=== PATIENT | female | born 1955 | race Caucasian/White ===

== ENCOUNTER → 2016-12-23 | Outpatient (CLI) | payer BC | END | disposition home or self-care (01) | LOC: LABWHC1 12:36 | PROVIDERS: ATTEND Internal Medicine Endocrinology, Diabetes & Metabolism | DX: E03.8 Other specified hypothyroidism (principal) | CPT/HCPCS: 36415; 84443 ==

== ENCOUNTER 2017-06-10 16:04 | Emergency (ER) | payer BC ==
[2017-06-10] MEDS ORDERED: SODIUM CHLORIDE 0.9% 1,000 ML IV STA (16:47)
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
[2017-06-10 17:22] LABS: Basophils # (A) 0.1 k/uL (0-0.2); Basophils % (A) 1 %; CH 32.1; CHCM 35.1; Eosinophils # (A) 0.1 k/uL (0-0.7); Eosinophils % (A) 1 %; HCT 49.7 % (34.0-46.0); HDW 2.44; HGB 17.4 gm/dL (11.4-16.0); Luc # (Auto) 0.13; Luc % (Auto) 1; Lymphocytes # (A) 1.2 k/uL (1.0-4.8); Lymphocytes % (A) 9 %; MCH 32.1 pg (25.0-35.0); MCHC 34.9 g/dL (31.0-37.0); Mean Platelet Volume 7.5; Monocytes # (A) 0.5 k/uL (0-1.0); Monocytes % (A) 4 %; Neutrophils # (A) 11.4 k/uL (1.3-7.7); Neutrophils % (A) 85 %; RDW 13.4 % (11.5-15.5); WBC 13.4 k/uL (3.8-10.6); WBC (Perox) 12.62
[2017-06-10 17:35] LABS: Partial Thromboplastin Time 25.9 sec (22.0-30.0); Prothrombin Time 10.6 sec (9.0-12.0)
[2017-06-10] MEDS ORDERED: LORazepam 2 MG/ML SYRINGE IV STA (17:35)
[2017-06-10 17:41] LABS: ALT 27 U/L (9-52); AST 34 U/L (14-36); Alkaline Phosphatase 65 U/L (38-126); Anion Gap 13 mmol/L; Blood Urea Nitrogen 16 mg/dL (7-17); Calcium 9.6 mg/dL (8.4-10.2); Carbon Dioxide 19 mmol/L (22-30); Chloride 107 mmol/L (98-107); Glucose 78 mg/dL (74-99); Non-African American GFR(MDRD) >60 (>60 ml/min/1.73 sqM); Potassium 4.5 mmol/L (3.5-5.1); Sodium 139 mmol/L (137-145); Total Bilirubin 0.9 mg/dL (0.2-1.3); Total Protein 7.7 g/dL (6.3-8.2)
[2017-06-10 17:48] LABS: Creatine Kinase 570 U/L (30-135)
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
[2017-06-10 18:01] LABS: Troponin I <0.012 ng/mL (0.000-0.034)
[2017-06-10 18:07] LABS: Creatine Kinase MB 6.5 ng/mL (0.0-2.4)
--- NOTE | 2017-06-10 18:15 | XR ---
EXAMINATION TYPE: XR thoracic spine complete DATE OF EXAM: 06/10/2017 CLINICAL HISTORY: pain TECHNIQUE: Frontal, lateral, and swimmer's view of thoracic spine are obtained. COMPARISON: None. FINDINGS: Thoracic spine show satisfactory alignment without evidence of acute fracture or dislocatio n. Vertebral body heights are preserved. Scattered degenerative disc is narrowing and spondylosis. Visualized ribs are unremarkable. IMPRESSION: No acute fracture or dislocation is seen in the thoracic spine. ICD 10 NO FRACTURE, INIT IAL EVALUATION
--- NOTE | 2017-06-10 18:15 | XR ---
EXAMINATION TYPE: XR lumbar spine 2 or 3V DATE OF EXAM: 06/10/2017 CLINICAL HISTORY: pain TECHNIQUE: Three views of the lumbar spine are submitted. COMPARISON: None. FINDINGS: There are 5 lumbar type vertebral bodies identified. The lumbar spine shows satisfactory alignment w ithout evidence of acute fracture or dislocation. Vertebral body heights are within normal limits. Mild degenerative disc space narrowing. Mild to moderate spondylosis and facet joint arthropathy. Th e overlying soft tissue appears unremarkable. IMPRESSION: No acute fracture or dislocation is seen in the lumbar spine. ICD 10 NO FRACTURE, INITIAL EVALUATION
--- NOTE | 2017-06-10 18:16 | XR ---
EXAMINATION TYPE: XR pelvis AP view DATE OF EXAM: 06/10/2017 CLINICAL HISTORY: pain TECHNIQUE: Single view the pelvis is submitted. FINDINGS: No evidence for fracture, dislocation or bony lesion. Joint spaces are well-preserved. S I joints appear symmetric. IMPRESSION: 1. No acute fracture or dislocation seen. ICD 10 NO FRACTURE, INITIAL EVALUATION
--- NOTE | 2017-06-10 18:17 | XR ---
EXAMINATION TYPE: XR chest 2V DATE OF EXAM: 06/10/2017 COMPARISON: NONE HISTORY: Shortness of breath TECHNIQUE: Frontal and lateral views of the chest are obtained. FINDINGS: Scattered senescent parenchymal changes noted. Hyperinflation compatible with COPD. No evidence for infiltrate. No evidence for atelectasis. Heart size is stable. Mediastinal structures are stable and grossly unremarkable. No evidence for hilar prominence. Degenerative changes dorsal spine. IMPRESSION: 1. No evidence for acute pulmonary disease.
[2017-06-10] MEDS ORDERED: KETOROLAC 30 MG/ML 1 ML VIAL IVP STA (19:10)
[2017-06-10 19:21] VITALS: BP 187/95; PULSE 79; RESP 21; TEMP 97.9
== END 2017-06-10 19:33 | disposition home or self-care (01) ==
LOC: EC 16:04
DX: M62.830 Muscle spasm of back (principal); M25.511 Pain in right shoulder; H57.11 Ocular pain, right eye; E07.9 Disorder of thyroid, unspecified; Z79.899 Other long term (current) drug therapy; V43.52XA Car driver injured in collision with other type car in traffic accident, initial encounter; Y92.410 Unspecified street and highway as the place of occurrence of the external cause
CPT/HCPCS: 99285; 96374; 96361 ×2; 36415; 93005; 80053; 82550; 82553; 84484; 85025; 85610; 85730; 71020; 72072; 72100; 72170; 72125; 70486; 70450; J1885

== ENCOUNTER → 2017-07-06 | Outpatient (CLI) | payer BC | END | disposition home or self-care (01) | LOC: LABWHC1 08:34 | PROVIDERS: ATTEND Internal Medicine Endocrinology, Diabetes & Metabolism | DX: E03.8 Other specified hypothyroidism (principal) | CPT/HCPCS: 36415; 84443 ==

== ENCOUNTER → 2018-01-12 | Outpatient (CLI) | payer BC | END | disposition home or self-care (01) | LOC: LABWHC1 08:58 | PROVIDERS: ATTEND Internal Medicine Endocrinology, Diabetes & Metabolism | DX: E03.8 Other specified hypothyroidism (principal) | CPT/HCPCS: 36415; 84443 ==

== ENCOUNTER → 2018-07-12 | Outpatient (CLI) | payer BC | END | disposition home or self-care (01) | LOC: LABWHC1 11:31 | PROVIDERS: ATTEND Internal Medicine Endocrinology, Diabetes & Metabolism | DX: Z01.812 Encounter for preprocedural laboratory examination (principal) | CPT/HCPCS: 36415; 84443 ==

== ENCOUNTER → 2019-01-04 | Outpatient (CLI) | payer BC | LOC: LABWHC1 10:33 | PROVIDERS: ATTEND Internal Medicine Endocrinology, Diabetes & Metabolism | DX: E03.8 Other specified hypothyroidism (principal) | CPT/HCPCS: 36415; 84443 ==

== ENCOUNTER → 2019-08-29 | Outpatient (CLI) | payer BC | END | disposition home or self-care (01) | LOC: LABWHC1 08:33 | PROVIDERS: ATTEND Internal Medicine Endocrinology, Diabetes & Metabolism | DX: E03.8 Other specified hypothyroidism (principal) | CPT/HCPCS: 36415; 84443 ==

== ENCOUNTER → 2019-09-30 | Outpatient (CLI) | payer BC ==
--- NOTE | 2019-10-07 12:21 | HM ---
HOLTER MONITOR REPORT 48 HOUR HOLTER REPORT: No diary was provided. Predominant rhythm appears to be sinus with a heart rate ranging from 51 to 113 beats per minute with average heart rate of about 70 beats or so. Rare isolated PACs and PVCs were noted without any significant runs of SVT, VT, or bradyarrhythmia. FINAL IMPRESSION: This is unremarkable 48 hour Holter with predominant sinus rhythm, average heart rate of about 70 beats per minute. There was evidence of some isolated PACs and PVCs without any significant runs of SVT, VT, or bradyarrhythmia. No diary was provided with these recordings. MMODL / IJN: [id number] /
== END | disposition home or self-care (01) ==
LOC: RADECHMAIN 11:28
PROVIDERS: ATTEND Family Medicine
DX: I49.1 Atrial premature depolarization (principal); I49.3 Ventricular premature depolarization
CPT/HCPCS: 93225; 93226

== ENCOUNTER → 2020-05-03 | Outpatient (CLI) | payer BC | END | disposition home or self-care (01) | LOC: LABWHC1 12:08 | PROVIDERS: ATTEND Internal Medicine Endocrinology, Diabetes & Metabolism | DX: E03.8 Other specified hypothyroidism (principal) | CPT/HCPCS: 36415; 84443 ==

== ENCOUNTER → 2020-12-10 | Outpatient (CLI) | payer BC | END | disposition home or self-care (01) | LOC: LABWHC1 09:18 | PROVIDERS: ATTEND Internal Medicine Endocrinology, Diabetes & Metabolism | DX: E03.8 Other specified hypothyroidism (principal) | CPT/HCPCS: 36415; 84443 ==

== ENCOUNTER 2021-01-11 07:14 | Day surgery (SDC) | payer BC ==
[2021-01-10 09:04] VITALS: BMI 29.8
[~2021-01-11 07:14] MED LIST: LACTATED RINGERS 1,000 ML IV SCH; LIDOCAINE 1% (10MG/ML) FOR IV START INTRADERMA PRN
[2021-01-11 08:00] VITALS: RESP 16; TEMP 98.2
[2021-01-11] MEDS ORDERED: PROPOFOL 10 MG/ML 20 ML VIAL IV ONE (08:07)
[2021-01-11] MEDS ORDERED: LIDOCAINE 1% INJ 10MG/ML (20 ML MDV) ONE (08:07)
--- NOTE | 2021-01-11 08:27 | P.PCN ---
Date of Procedure: 01/11/21 Procedure(s) Performed: BRIEF HISTORY: Patient is a 65-year-old pleasant white female scheduled for an elective colonoscopy as a part of screening for colorectal neoplasia. PROCEDURE PERFORMED: Colonoscopy. PREOPERATIVE DIAGNOSIS: Screening for colon cancer. IV sedation per Anesthesia. PROCEDURE: After informed consent was obtained, the patient, was brought into the endoscopy unit. IV sedation was administered by Anesthesia under continuous monitoring. Digital rectal examination was normal. Initially the Olympus CF-160 flexible video colonoscope was then inserted in the rectum, gradually advanced into the cecum without any difficulty. Careful examination was performed as the scope was gradually being withdrawn. Ileocecal valve and the appendiceal orifice were visualized and appeared normal. Prep was excellent. Mucosa of the cecum, ascending colon, transverse colon, descending colon, sigmoid colon, and rectum appeared normal. Scattered sigmoid diverticulosis. Retroflexion was performed in the rectum and no lesions were seen. The patient tolerated the procedure well. IMPRESSION: Normal-appearing colon from rectum to cecum with no evidence of colorectal neoplasia. Scattered sigmoid diverticulosis. RECOMMENDATIONS: Findings of this examination were discussed with the patient a s well as her family. She was advised to have a repeat screening colonoscopy in 10 years..
[2021-01-11 09:01] VITALS: BP 144/71; PULSE 63
== END 2021-01-11 09:09 | disposition home or self-care (01) ==
LOC: ORWHC2ENDO 07:14
PROVIDERS: ATTEND Internal Medicine Gastroenterology
DX: Z12.11 Encounter for screening for malignant neoplasm of colon (principal); K57.30 Diverticulosis of large intestine without perforation or abscess without bleeding; I10 Essential (primary) hypertension; E78.5 Hyperlipidemia, unspecified; Z79.899 Other long term (current) drug therapy
CPT/HCPCS: J2001; J2704; G0121

== ENCOUNTER → 2021-04-08 | Outpatient (CLI) | payer MEDICARE | END | disposition home or self-care (01) | LOC: LABWHC1 08:37 | PROVIDERS: ATTEND Family Medicine | DX: U07.1 COVID-19 (principal) | CPT/HCPCS: 36415; 86769 ==

== ENCOUNTER → 2021-04-09 | Outpatient (CLI) | payer BC ==
--- NOTE | 2021-04-09 18:43 | CONS ---
CONSULTATION REASON FOR CONSULTATION: Sleep apnea. This 66-year-old female patient was referred to me for sleep apnea evaluation. The patient has been having occasional palpitations. She has undergone a full cardiac evaluation by Dr. Huang. The workup has been negative. She was referred to me accordingly. The patient had a recent COVID-19 infection, from which she has recovered without any major difficulties. She has hypertension and hypothyroidism as comorbid conditions and she has undergone a previous partial nephrectomy for a benign kidney disease. In terms of sleep apnea, she has been noted to snore and occasionally stop breathing. In general, she has suffered from insomnia for many years and she is averaging only 5 hours of sleep. Nevertheless, the sleep quality, according to her, does not seem to be appropriate and she may have an underlying obstructive sleep apnea, as the patient is having snoring and occasional apneas. As such, she wants to be further investigated. She has difficulties sleeping outside her bedroom environment. As such, polysomnography in the sleep center may not be possible. No recent weight gain. She wakes up frequently in the middle of the night. She is able to generate and go back to sleep. No sleep paralysis. No hallucinations. No cataplexy. She prefers to sleep on her side. No naps during the day. Lena score is 2. PAST MEDICAL HISTORY: 1. COVID-19 infection, recovered. 2. Hypertension. 3. Chronic insomnia. 4. Hypothyroidism. PAST SURGICAL HISTORY: Past surgical history includes partial nephrectomy on the left. DRUG ALLERGIES: NOT KNOWN. OUTPATIENT MEDICATIONS: The patient is on hormone replacement therapy, including progesterone 100 mg p.o. daily, a hormonal patch and . She is also on Tirosint 112 mcg p.o. daily, amlodipine 5 mg p.o. daily, calcium tablets, vitamin B12, folic acid and vitamin D3. SOCIAL HISTORY: The patient is a nonsmoker. No history of alcoholism. No history of IV drugs. No history of substance abuse. She is . She is living with her . FAMILY HISTORY: Noncontributory. Negative for sleep apnea. Mother had pancreas cancer, . Father had stroke, . REVIEW OF SYSTEMS: Fourteen-point review of systems was done. Negative other than things mentioned above in history of present illness. PHYSICAL EXAMINATION: VITAL SIGNS: BP is 137/83, pulse 67, respirations 12, temperature 98.4, saturation 97% on room air. Height is 5 feet 2 inches, weight is 167. Lena score is 2. BMI 30.5. Neck size 14 inches. GENERAL APPEARANCE: Calm, comfortable. HEAD: Atraumatic, normocephalic. NECK: Supple. No JVD. No goiter or neck masses. Mallampati class IV. LUNGS: Clear to auscultation. HEART: Heart sounds are regular rate and rhythm. Normal S1, S2. No S3, S4. No murmurs. ABDOMEN: Soft, nontender. No organomegaly. EXTREMITIES: No edema. No cyanosis or clubbing. IMPRESSION: 1. Obstructive sleep apnea clinically suspected, currently under investigation. The patient has a Mallampati class IV along with an overbite and some slight grinding of the teeth. No recent weight gain. She has snoring and occasional apneas. 2. Chronic insomnia. Able to generate around 4 to 5 hours of sleep. 3. COVID-19 infection, recovered. 4. Hypertension. 5. Hypothyroidism. 6. Partial nephrectomy for a benign kidney lesion. PLAN: 1. Proceed with a home sleep study. 2. Results will be reviewed and the patient will be instructed accordingly on treatment plan. MMODL / IJN: [id number] /
== END ==
LOC: SLEEP 13:07
PROVIDERS: ATTEND Internal Medicine Critical Care Medicine
DX: G47.00 Insomnia, unspecified (principal); R06.83 Snoring; G47.63 Sleep related bruxism; I10 Essential (primary) hypertension; E03.9 Hypothyroidism, unspecified; Z90.5 Acquired absence of kidney; Z86.16 Personal history of COVID-19
CPT/HCPCS: 99211

== ENCOUNTER → 2021-04-15 | Outpatient (CLI) | payer MEDICARE ==
--- NOTE | 2021-04-17 06:38 | BD ---
EXAMINATION TYPE: Axial Bone Density DATE OF EXAM: 04/15/2021 COMPARISON: NONE CLINICAL HISTORY: Postmenopausal female Height: 61.5 IN Weight: 165 LBS RISK FACTORS HISTORY OF: History of Wrist Fracture: RT WRIST AGE 10 Active: YES Diet low in dairy products/other sources of calcium: YES Postmenopausal woman: AGE 51 Take estrogen and/or progesterone medications: PROGESTERONE AND VAGIFEM How lon YEARS MEDICATIONS: Thyroid Medications: YES Which medication: TIROSINT How Lon+ YEARS Additional Medications: CALCIUM, VIT D, TIROSINT, VAGIFEM, PROGESTERONE, BLOOD PRESSURE MED, EXAM MEASUREMENTS: Bone mineral densitometry was performed using the [employer] System. Bone mineral density as measured about the Lumbar spine is: ----- L1-L4(G/cm2): 11.435 T Score Values are as follows: ----- L2: 1.6 ----- L3: 2.3 ----- L4: 2.7 ----- L1-L4: 2.1 Bone mineral density BASELINE Bone mineral density about the R hip (g/cm2): 0.971 Bone mineral density about the L hip (g/cm2): 0.988 T Score values are as follows: -----R Neck: -0.5 -----L Neck: -0.4 -----R Total: -0.2 -----L Total: -0.2 Bone mineral density BASELINE IMPRESSION: Normal (Values between +1 and -1 indicate normal bone mass). Consider repeating this study in 5 year s or sooner if there is some new clinical indication. NOTE: T-SCORE=SD OF THE YOUNG ADULT MEAN.
== END | disposition home or self-care (01) ==
LOC: RADBDWWP 11:10
PROVIDERS: ATTEND Family Medicine
DX: Z78.0 Asymptomatic menopausal state (principal)
CPT/HCPCS: 77080

== ENCOUNTER → 2021-10-15 | Outpatient (CLI) | payer MEDICARE ==
--- NOTE | 2021-10-15 17:45 | PN ---
PROGRESS NOTE Maru is coming in for a compliance check regarding obstructive sleep apnea. The patient was diagnosed having SHAINA moderate severe with an AHI of 21, and this is based on a home sleep study. For now, the patient is using a Simplus full-face mask, small size. She is not very much comfortable with a full-face mask. She is reporting improvement in her sleep quality in general while on CPAP therapy and she seems to be committed for long-term use. I checked the compliance data and based on a 30-day compliance data that was collected between 07/11/2021 and 08/09/2021, the patient has been averaging around 6 hours and 28 minutes of CPAP use per night and she has used the machine more than 4 hours, 87% of the time. Her AHI is down to 3.8 and her leak is minimal at this point in time. Her current leak is in the order of 8 L/minute. Her [place] score is down to 1. On today's evaluation, we discussed other options and possibilities in terms of her mask interface. After a lengthy discussion, I opted to give her a DreamWear under the nose small size mask to try. Another thing was to switch her to an APAP mode for her at an EPR of 3 and drop the temperature of the tubing down to 76 degrees Fahrenheit, knowing that her current temperature is 82. REVIEW OF SYSTEMS: Fourteen-point review of system was done positive findings are mentioned in history of present illness. She is currently stable. PHYSICAL EXAMINATION: VITAL SIGNS: BP is 126/77, pulse 73, respirations 18, temperature 97.8, weight is 169, which is stable. [place] score is 1. Saturation 97% on room air. General appearance: Calm, comfortable. Head is atraumatic, normocephalic. Neck: Supple. There is no JVD. No goiter or neck mass. Lungs: Clear to auscultation. Heart: Heart sounds are regular rate and rhythm. Normal S1, S2. No murmurs. Abdomen: Soft, nontender. No organomegaly. Extremities: No edema, no cyanosis or clubbing. IMPRESSION: 1. Symptomatic SHAINA with an AHI of 21, moderately severe based on home sleep study. Currently on a CPAP at a pressure of 7. 2. Hypersomnia, improved. 3. Snoring improved. PLAN: 1. Offer the patient a DreamWear under the nose small size nasal mask. 2. Switch this patient to an APAP mode, pressure minimum of 4, maximum of 7 with a ramp time. 3. Add EPR of 3. 4. Drop the temperature of the tubing down to 76 degrees Fahrenheit. 5. Encourage weight loss. 6. See me back in a year's time in followup. MMODRimma / IJN: [id number] /
== END ==
LOC: SLEEP 13:28
PROVIDERS: ATTEND Internal Medicine Critical Care Medicine
DX: G47.33 Obstructive sleep apnea (adult) (pediatric) (principal)

== ENCOUNTER → 2021-12-10 | Outpatient (CLI) | payer MEDICARE ==
[2021-12-10 14:36] LABS: T4, Free (Free Thyroxine) 1.56 ng/dL (0.800-1.800)
== END | disposition home or self-care (01) ==
LOC: LABWHC1 10:46
PROVIDERS: ATTEND Internal Medicine Endocrinology, Diabetes & Metabolism
DX: E03.8 Other specified hypothyroidism (principal)
CPT/HCPCS: 36415; 84439; 84443

== ENCOUNTER → 2022-06-16 | Outpatient (CLI) | payer MEDICARE | END | disposition home or self-care (01) | LOC: LABWHC1 08:54 | PROVIDERS: ATTEND Internal Medicine Endocrinology, Diabetes & Metabolism | DX: E03.8 Other specified hypothyroidism (principal) | CPT/HCPCS: 36415; 84443 ==

== ENCOUNTER → 2023-03-23 | Outpatient (CLI) | payer MEDICARE ==
[2023-03-23 15:28] LABS: AST 22 U/L (13-35)
[2023-03-23 15:29] LABS: ALT 20 U/L (8-44); Chol/HDL Ratio 4.91 Ratio
== END | disposition home or self-care (01) ==
LOC: LABWHC1 08:45
PROVIDERS: ATTEND Internal Medicine Interventional Cardiology
DX: E78.2 Mixed hyperlipidemia (principal)
CPT/HCPCS: 36415; 80061; 84450; 84460

== ENCOUNTER → 2023-07-13 | Outpatient (CLI) | payer MEDICARE | END | disposition home or self-care (01) | LOC: LABWHC1 11:08 | PROVIDERS: ATTEND Internal Medicine Endocrinology, Diabetes & Metabolism | DX: E03.8 Other specified hypothyroidism (principal) | CPT/HCPCS: 36415; 84443 ==

== ENCOUNTER → 2023-10-05 | Outpatient (CLI) | payer MEDICARE ==
[2023-10-05 22:19] LABS: ALT 20 U/L (8-44); AST 20 U/L (13-35); Albumin 4.4 d/dL (3.8-4.9); Alkaline Phosphatase 65 U/L (41-126); BUN/Creat Ratio 18.89 Ratio (12.00-20.00); Calcium 9.5 mg/dL (8.7-10.3); Carbon Dioxide 27.5 mmol/L (21.6-31.8); Chloride 106 mmol/L (96-109); Chol/HDL Ratio 2.72 Ratio; Glucose 80 mg/dL (70-110); LDL Cholesterol,Calculated 87.1 mg/dL (0.0-131.0); Potassium 4.7 mmol/L (3.5-5.5); Sodium 142 mmol/L (135-145); Total Bilirubin 0.5 mg/dL (0.3-1.2); Total Protein 6.4 d/dL (6.2-8.2)
== END | disposition home or self-care (01) ==
LOC: LABWHC1 08:44
PROVIDERS: ATTEND Nurse Practitioner Adult Health
DX: I10 Essential (primary) hypertension (principal); E78.2 Mixed hyperlipidemia
CPT/HCPCS: 36415; 80053; 80061

== ENCOUNTER → 2024-01-20 | Outpatient (CLI) | payer MEDICARE | END | disposition home or self-care (01) | LOC: LABWHC1 09:27 | PROVIDERS: ATTEND Internal Medicine Endocrinology, Diabetes & Metabolism | DX: E03.8 Other specified hypothyroidism (principal) | CPT/HCPCS: 36415; 84443 ==

== ENCOUNTER → 2024-10-14 | Outpatient (CLI) | payer MEDICARE ==
[2024-10-14 15:37] LABS: ALT 17 U/L (8-44); AST 19 U/L (13-35); LDL Cholesterol,Calculated 83.5 mg/dL (0.0-131.0); VLDL Calculation 17.78 mg/dL (5.00-40.00)
== END | disposition home or self-care (01) ==
LOC: LABWHC1 09:35
PROVIDERS: ATTEND Internal Medicine Cardiovascular Disease
DX: E78.2 Mixed hyperlipidemia (principal)
CPT/HCPCS: 36415; 80061; 84450; 84460